=== PATIENT | male | born 1975 | race Caucasian/White ===

== ENCOUNTER 2020-05-27 04:57 | Observation (INO) | payer SELFPAY ==
[~2020-05-27] VITALS: Ht 180.3 cm; Wt 104.0 kg
[2020-05-27] MEDS ORDERED: NITROGLYCERIN 0.4 MG SL TABS BTL 25'S SL ONE (05:17)
[2020-05-27] MEDS ORDERED: ASPIRIN 81 MG CHEW (CHILDREN'S ASA) ONE (05:18)
--- NOTE | 2020-05-27 05:28 | ED Cardiac General ---
History of Present Illness General Chief Complaint: Chest Pain Stated Complaint: PALPITATIONS Source: patient Exam Limitations: no limitations (MARCO A PURCELL) History of Present Illness Date Seen by Provider: May 27, 2020 Time Seen by Provider: 05:09 Initial Comments The patient presents to the ER by private conveyance with chief complaint of 6 out of 10 pain across his entire anterior chest nonradiating to his jaw, neck or shoulders starting about 1-2 hours prior to arrival. He says he was in his car driving to see his dad here in [place]. He's from [place], [place]. He does not have a personal history of heart disease. He felt like his heart was racing but did not actually endorse palpitations. He did not have any syncope or near- syncope. He is not having any nausea now but he did have some earlier. He has no fevers cough shortness of air sick contacts. He denies diarrhea or vomiting. He denies a history of anxiety, hypertension, GERD, hyperlipidemia, smoking, recreational drugs. He says he had a couple of shots about 12 hours ago. (MARCO A PURCELL) Allergies and Home Medications Allergies Coded Allergies: No Known Drug Allergies (Unverified , 05/27/20) Home Medications No Active Prescriptions or Reported Meds Patient Home Medication List Home Medication List Reviewed: Yes (MARCO A PURCELL) Review of Systems Review of Systems Constitutional: No chills, No diaphoresis, No dizziness, No fever, No malaise EENTM: No Blurred Vision, No Double Vision Respiratory: Denies Cough, Denies Shortness of Air Cardiovascular: See HPI, Chest Pain; Denies Edema, Denies Irregular Heart Rate; Lightheadedness; Denies Palpitations, Denies Syncope Gastrointestinal: Denies Abdomen Distended, Denies Abdominal Pain, Denies Constipated, Denies Diarrhea; Nausea; Denies Vomiting Genitourinary: Denies Burning, Denies Discharge Musculoskeletal: No back pain, No joint pain Psychiatric/Neurological: Denies Anxiety, Denies Depressed (MARCO A PURCELL) All Other Systems Reviewed Negative Unless Noted: Yes (MARCO A PURCELL) Past Ffqycwp-Cyvzqq-Kwlofl Hx Patient Social History Alcohol Use: Occasionally Uses Alcohol Beverage of Choice: Whiskey Recreational Drug Use: No Smoking Status: Never a Smoker Recent Foreign Travel: No Contact w/Someone Who Travel: No (MARCO A PURCELL) Physical Exam Vital Signs Vital Signs - First Documented 05/27/20 05:10 Temp 36.6 Pulse 100 Resp 20 B/P (MAP) 170/121 (137) Pulse Ox 100 O2 Delivery Room Air (DENISSE DANG MD) Vital Signs Capillary Refill : (MARCO A PURCELL) Height, Weight, BMI Height: '" Weight: lbs. oz. kg; BMI Method: General Appearance: Anxious, Mild Distress HEENT: PERRL/EOMI, Pharynx Normal, Moist Mucous Membranes Neck: Full Range of Motion, Normal Inspection Respiratory: Lungs Clear, Normal Breath Sounds, No Accessory Muscle Use, No Respiratory Distress Cardiovascular: Regular Rate, Rhythm, No Edema Gastrointestinal: Normal Bowel Sounds, Non Tender, Soft Extremity: Normal Capillary Refill, Normal Inspection, No Pedal Edema Neurologic/Psychiatric: Alert, Oriented x3 Skin: Normal Color, Warm/Dry (MARCO A PURCELL) Progress/Results/Core Measures Results/Orders Lab Results Laboratory Tests Test 05/27/20 05:18 05/27/20 07:27 05/27/20 08:59 Range/Units White Blood Count 6.9 4.3-11.0 10^3/uL Red Blood Count 6.53 H 4.30-5.52 10^6/uL Hemoglobin 19.2 H 13.3-17.7 g/dL Hematocrit 56 H 40-54 % Mean Corpuscular Volume 86 80-99 fL Mean Corpuscular Hemoglobin 29 25-34 pg Mean Corpuscular Hemoglobin Concent 34 32-36 g/dL Red Cell Distribution Width 12.9 10.0-14.5 % Platelet Count 148 130-400 10^3/uL Mean Platelet Volume 11.0 9.0-12.2 fL Immature Granulocyte % (Auto) 0 % Neutrophils (%) (Auto) 78 H 42-75 % Lymphocytes (%) (Auto) 16 12-44 % Monocytes (%) (Auto) 6 0-12 % Eosinophils (%) (Auto) 0 0-10 % Basophils (%) (Auto) 0 0-10 % Neutrophils # (Auto) 5.4 1.8-7.8 10^3/uL Lymphocytes # (Auto) 1.1 1.0-4.0 10^3/uL Monocytes # (Auto) 0.4 0.0-1.0 10^3/uL Eosinophils # (Auto) 0.0 0.0-0.3 10^3/uL Basophils # (Auto) 0.0 0.0-0.1 10^3/uL Immature Granulocyte # (Auto) 0.0 0.0-0.1 10^3/uL Prothrombin Time 13.3 12.2-14.7 SEC INR Comment 1.0 0.8-1.4 Activated Partial Thromboplast Time 28 24-35 SEC D-Dimer 0.16 0.00-0.49 UG/ML Sodium Level 143 135-145 MMOL/L Potassium Level 4.0 3.6-5.0 MMOL/L Chloride Level 107 98-107 MMOL/L Carbon Dioxide Level 24 21-32 MMOL/L Anion Gap 12 5-14 MMOL/L Blood Urea Nitrogen 9 7-18 MG/DL Creatinine 1.30 0.60-1.30 MG/DL Estimat Glomerular Filtration Rate 60 BUN/Creatinine Ratio 7 Glucose Level 120 H 70-105 MG/DL Calcium Level 10.7 H 8.5-10.1 MG/DL Corrected Calcium 8.5-10.1 MG/DL Magnesium Level 2.0 1.6-2.4 MG/DL Total Bilirubin 0.6 0.1-1.0 MG/DL Aspartate Amino Transf (AST/SGOT) 24 5-34 U/L Alanine Aminotransferase (ALT/SGPT) 51 0-55 U/L Alkaline Phosphatase 111 40-136 U/L Myoglobin 35.9 10.0-92.0 NG/ML Troponin I < 0.028 < 0.028 <0.028 NG/ML Total Protein 7.3 6.4-8.2 GM/DL Albumin 4.6 H 3.2-4.5 GM/DL C-Reactive Protein High Sensitivity 0.05 0.00-0.50 MG/DL (DENISSE DANG MD) My Orders Orders - DENISSE DANG MD Troponin I (05/27/20 07:30) Ketorolac Injection (Toradol Injection) (05/27/20 07:15) Ondansetron Injection (Zofran Injectio (05/27/20 07:15) Hs C Reactive Protein (05/27/20 07:30) Ct Angio Chest W (05/27/20 08:43) Jak2 Mutation (V617f) Analysis (05/27/20 08:43) Iohexol Injection (Omnipaque 350 Mg/Ml 1 (05/27/20 09:00) Received Contrast (Hold Metformin- Contr (05/27/20 09:00) Ns (Ivpb) (Sodium Chloride 0.9% Ivpb Bag (05/27/20 09:00) (DENISSE DANG MD) Medications Given in ED Current Medications Medications Dose Ordered Sig/Salma Route Start Time Stop Time Status Last Admin Dose Admin Iohexol 100 ml ONCE ONCE IV 05/27/20 09:00 05/27/20 09:01 DC 05/27/20 09:09 70 ML Ketorolac Tromethamine 30 mg ONCE ONCE IVP 05/27/20 07:15 05/27/20 07:16 DC 05/27/20 07:07 30 MG Ondansetron HCl 4 mg ONCE ONCE IVP 05/27/20 07:15 05/27/20 07:16 DC 05/27/20 08:00 4 MG Sodium Chloride 100 ml ONCE ONCE IV 05/27/20 09:00 05/27/20 09:01 DC 05/27/20 09:09 80 ML (DENISSE DANG MD) Vital Signs/I&O 05/27/20 05/27/20 05:10 05:10 Temp 36.6 Pulse 100 Resp 20 B/P (MAP) 170/121 (137) Pulse Ox 100 O2 Delivery Room Air (DENISSE DANG MD) Progress Progress Note #1: Time: 05:26 Progress Note Anxiety attack, GERD are also in the differential. His heart rate is around 100 on arrival and could be from anxiety pain. We'll get a d-dimer. Progress Note #2: Time: 05:33 Progress Note 2 doses of nitroglycerin made no difference in his pain. His heart rate is still around 105-110. His blood pressure went down from 160 systolic to 140 systolic. We'll try a GI cocktail. If that does not help next week may try morphine for its anxiolytic and pain control properties. He still rates his pain at about a 6 out of 10. (MARCO A PURCELL) Progress Note #1: Time: 07:17 Progress Note I assumed care of this patient from Dr. Purcell at 06:15. Patient reports no improvement in his throbbing, fluttering discomfort in the left chest. We are now trying Toradol. A repeat troponin will be drawn at 07:30. We will reassess at that time. Patient reports he still has some nausea. A repeat dose of Zofran has been ordered. Patient's heart rate improved to about 80 after a liter of IV fluid. Patient asserts that he still feels like his heart is racing despite the improvement in heart rate. I did inquire about anxiety. Patient does not feel like he has issues with anxiety and denies any recent life circumstances that would induce anxiety. Progress Note #2: Time: 09:03 Progress Note Patient states chest discomfort has not changed at all with any of the therapies administered. He declines an anxiolytic as he does not think anxiety is a contributing factor. I discussed the elevated hemoglobin and hematocrit with Dr. Janis is Dr. Holm making rounds this weekend okay okay right thank you thew who recommends obtaining a Roger 2 mutation study as well as a CT angiogram of the chest. He also recommended a therapeutic phlebotomy of 500 cc. Case was also discussed with Dr. Chakraborty who would like patient admitted and to obtain another troponin IV hours after the last 1 as well as an echocardiogram. Dr. Cadena is agreeable to admission. Dr. Quinn can see the patient in consultation on Friday if needed. (DENISSE DANG MD) Initial ECG Impression Date: May 27, 2020 Initial ECG Impression Time: 05:14 Initial ECG Rate: 97 Initial ECG Rhythm: Normal Sinus Initial ECG Intervals: Normal Initial ECG Impression: Normal Initial ECG Comparisson: No Previous ECG Available Comment Normal sinus rhythm without clinically relevant ST changes. (MARCO A PURCELL) Diagnostic Imaging Diagonstic Imaging: Xray Plain Films/CT/US/NM/MRI: chest Comments No acute cardio pulmonary processes noted. Reviewed: Reviewed by Me (MARCO A PURCELL) Departure Communication (Admissions) Time/Spoke to Admitting Phy: 09:06 Dr. Surinder Chakraborty at 08:30 Dr. Quinn at 08:35 (DENISSE DANG MD) Impression Primary Impression: Chest pain Qualified Codes: R07.9 - Chest pain, unspecified Additional Impressions: Elevated hemoglobin Hypertension Qualified Codes: I10 - Essential (primary) hypertension Disposition: ADMITTED INPATIENT Condition: Improved Admissions Decision to Admit Reason: Admit from ER (General) Decision to Admit/Date: May 27, 2020 Time/Decision to Admit Time: 08:30 (DENISSE DANG MD) Departure-Patient Inst. Referrals: NO,LOCAL PHYSICIAN (PCP/Family) Primary Care Physician Scripts No Active Prescriptions or Reported Meds MARCO A PURCELL May 27, 2020 05:27 DENISSE DANG MD May 27, 2020 07:20
[2020-05-27] MEDS ORDERED: ASPIRIN 81 MG CHEW (CHILDREN'S ASA) PO ONE (05:30)
[2020-05-27] MEDS ORDERED: NITROGLYCERIN 0.4 MG SL TABS BTL 25'S SL PRN (05:30)
[2020-05-27 05:31] LABS: BASOPHILS % (AUTO) 0 % (0-10); EOSINOPHILS % (AUTO) 0 % (0-10); HEMATOCRIT 56 % (40-54); HEMOGLOBIN 19.2 g/dL (13.3-17.7); LYMPHOCYTES # (AUTO) 1.1 10^3/uL (1.0-4.0); LYMPHOCYTES % (AUTO) 16 % (12-44); MEAN CORPUSCULAR HEMOGLOBIN 29 pg (25-34); MEAN CORPUSCULAR HGB CONC 34 g/dL (32-36); MEAN CORPUSCULAR VOLUME 86 fL (80-99); MONOCYTES # (AUTO) 0.4 10^3/uL (0.0-1.0); MONOCYTES % (AUTO) 6 % (0-12); NEUTROPHILS # (AUTO) 5.4 10^3/uL (1.8-7.8); NEUTROPHILS % (AUTO) 78 % (42-75); PLATELET COUNT 148 10^3/uL (130-400); WHITE BLOOD COUNT 6.9 10^3/uL (4.3-11.0)
[2020-05-27] MEDS ORDERED: FAMOTIDINE 20 MG (PEPCID) TABLET PO STA (05:32)
[2020-05-27 05:35] LABS: ALBUMIN 4.6 GM/DL (3.2-4.5)
[2020-05-27 05:36] LABS: CHLORIDE 107 MMOL/L (98-107); SODIUM 143 MMOL/L (135-145)
[2020-05-27 05:37] LABS: CALCIUM 10.7 MG/DL (8.5-10.1)
[2020-05-27 05:38] LABS: GLUCOSE 120 MG/DL (70-105); TOTAL PROTEIN 7.3 GM/DL (6.4-8.2)
[2020-05-27 05:39] LABS: CARBON DIOXIDE 24 MMOL/L (21-32)
[2020-05-27 05:40] LABS: BILIRUBIN,TOTAL 0.6 MG/DL (0.1-1.0)
[2020-05-27 05:41] LABS: ALKALINE PHOSPHATASE 111 U/L (40-136)
[2020-05-27 05:42] LABS: GFR ESTIMATED 60
[2020-05-27] MEDS ORDERED: ONDANSETRON 4 MG/2 ML (SDV) Z0FRAN ONE (05:42)
[2020-05-27 05:43] LABS: BUN/CREATININE RATIO 7
[2020-05-27 05:44] LABS: ALANINE AMINOTRANSFERASE 51 U/L (0-55)
[2020-05-27] MEDS ORDERED: LIDOCAINE 2% VISCOUS 15 ML UDC PO ONE (05:45)
[2020-05-27] MEDS ORDERED: ONDANSETRON 4 MG/2 ML (SDV) Z0FRAN IVP ONE ×2 (05:45→07:15)
[2020-05-27] MEDS ORDERED: ANTACID SUSP 30 ML UDC (MYLANTA) PO ONE (05:45)
[2020-05-27 05:54] LABS: FIBRIN DEGRADATION PRODUCTS 0.16 UG/ML (0.00-0.49); PROTHROMBIN TIME PATIENT 13.3 SEC (12.2-14.7)
[2020-05-27] MEDS ORDERED: morphine INJ 10 MG/ML 1ML (SYR OR VIAL) IVP STA (06:14)
[2020-05-27] MEDS ORDERED: LACTATED RINGERS 1,000 ML IV ONE (06:15)
[2020-05-27] MEDS ORDERED: KETOROLAC 30 MG/ML VIAL IVP ONE (07:15)
[2020-05-27] MEDS ORDERED: HOLD METFORMIN - RECEIVED CONTRAST 20 ML VIAL IV SCH (09:00)
[2020-05-27] MEDS ORDERED: NS 100 ML (IVPB) BAG IV ONE (09:00)
[2020-05-27] MEDS ORDERED: IOHEXOL 350 MG/ML 100 ML (OMNIPAQUE 350) VIAL IV ONE (09:00)
--- NOTE | 2020-05-27 09:05 | Diagnostic Imaging Report ---
INDICATION: Chest pain No focal infiltrate, effusion or pneumothorax. IMPRESSION: No acute appearing abnormality. Dictated by: Dictated on workstation # [id number]
--- NOTE | 2020-05-27 09:33 | Diagnostic Imaging Report ---
PROCEDURE: CT angiography of the chest with contrast. TECHNIQUE: Multiple contiguous axial images were obtained through the chest after uneventful bolus administration of intravenous contrast. 3D reconstructed CTA MIP acquisitions were also performed. Auto Exposure Controls were utilized during the CT exam to meet ALARA standards for radiation dose reduction. INDICATION: Clinical suspicion for PE. There are no intraluminal pulmonary arterial filling defects. There were no findings of pulmonary arterial embolus. The thoracic aorta is patent and nonaneurysmal and nonacute. There is no pleural or pericardial effusion. The lungs are clear and well expanded. No mass or lymphadenopathy. No acute soft tissue or osseous chest wall pathology. The visualized upper abdomen show a hypodense but non-simple appearing right renal midpole lesion in the cortex 1.5 cm. Its follow-up sonographic correlation recommended as its unclear if this is solid or complex cystic. There are bilateral renal collecting system hyperdensities which may be early accumulation of contrast media versus nonobstructing stones, calculus disease felt more likely this could also be confirmed or refuted at ultrasound. Spleen is at the upper limits of normal for size but appeared nonfocal and nonacute. No upper abdominal free fluid or free air. IMPRESSION: Negative for PE or acute appearing chest pathology. Probable nonobstructing nephrolithiasis, indeterminate right renal cortical nodule complex cystic versus solid, correlating ultrasound recommended. An acute appearing abnormality at today's study is not identified. Dictated by: Dictated on workstation # [id number]
--- NOTE | 2020-05-27 09:36 | NUR ---
pt to daysurg for therapeutic phlebotomy.
[2020-05-27 09:52] LABS: AMPHETAMINE SCREEN, URINE NEGATIVE (NEGATIVE); BARBITURATE SCREEN URINE NEGATIVE (NEGATIVE); BENZODIAZEPINES SCREEN URINE NEGATIVE (NEGATIVE); CANNABINOID SCREEN, URINE NEGATIVE (NEGATIVE); COCAINE SCREEN URINE NEGATIVE (NEGATIVE); METHADONE STAT NEGATIVE (NEGATIVE); METHAMPHETAMINE SCREEN URINE S NEGATIVE (NEGATIVE); OPIATE SCREEN URINE POSITIVE (NEGATIVE); OXYCODONE STAT NEGATIVE (NEGATIVE); PROPOXYPHENE STAT NEGATIVE (NEGATIVE); TRICYCLIC ANTIDEPRESSANTS SCRE NEGATIVE (NEGATIVE)
[2020-05-27] MEDS ORDERED: ONDANSETRON 4 MG/2 ML (SDV) Z0FRAN IV PRN (10:45)
--- NOTE | 2020-05-27 11:00 | NUR ---
ALCIDES CAMACHO admitted to room 419-1, with an admitting diagnosis of CHEST PAIN/INCREASED HGB, on 05/27/20 from ED via WHEELCHAIR, accompanied by ED STAFF. ALCIDES CAMACHO introduced to surroundings, call light, bed controls, phone, TV, temperature control, lights, meal times, smoking policy, visitor policy, side rail policy, bathrooms and showers. Patient Rights given to patient in the handbook. ALCIDES CAMACHO verbalizes understanding that [facility] is not responsible for the loss or damage to any personal effects or valuables that are kept in the patients posession during their hospitalization. ALCIDES CAMACHO verbalizes understanding of Interdisciplinary Patient Education. Patient and/or family were informed about the Rapid Response Team and its purpose.
--- NOTE | 2020-05-27 11:01 | History & Physical ---
HPI History of Present Illness: Patient was driving in his car and had sudden onset of chest pain on left side of chest. Presented to ED. No improvement after nitro, morphine or toradol. Negative troponins times [address] elevation. Pain was 7/10. No past medical history. Hematocrit was elevated at 56. Dr. Quinn was consulted in ED who thought that symptoms could be due to elevated hematocrit. He recommended removing 500 ml of blood volume and checking MAKENNA [address]. Dr. Chakraborty is consulted for management of chest pain. Patient admits that mother of [place] at age 49, but was a smoker with other health problems. CTA chest in ED was normal except for cystic structure in kidney. Source: patient, RN/MD Date seen by provider: May 27, 2020 Time Seen by Provider: 11:12 Attending Physician Belkis Holguin MD PCP Ivan Siddiqi MD Consult Date of Admission May 27, 2020 at 09:06 Home Medications Home Medications Reviewed patient Home Medication Reconciliation performed by pharmacy medication reconciliations cardiovascular technician and/or nursing. Patients Allergies have been reviewed. Allergies Coded Allergies: No Known Drug Allergies (Unverified , 05/27/20) ENB-[id number]-Vwepdp Hx Patient Social History Alcohol Use: Occasionally Uses Recreational Drug Use: No Smoking Status: Never a Smoker Recent Foreign Travel: No Contact w/other who traveled: No Recent Hopitalizations: No Recent Infectious Disease Expo: No Past Medical History No past medical history per patient. Review of Systems ([facility]) Constitutional: No chills, No diaphoresis, No dizziness, No fever, No malaise, No weakness EENTM: no symptoms reported Respiratory: No cough, No dyspnea on exertion, No hemoptysis, No orthopnea, No short of breath Cardiovascular: chest pain; No edema, No palpitations Gastrointestinal: No abdominal pain, No constipation Genitourinary: No decreased output, No frequency, No hematuria Musculoskeletal: No back pain Skin: No dryness, No rash Psychiatric/Neurological: Denies Headache, Denies Numbness, Denies Paresthesia Physical Exam-([facility]) Physical Exam Vital Signs VS - Last 72 Hours, by Label 05/27/20 05/27/20 05/27/20 05:10 05:10 09:48 Temp 36.6 Pulse 100 93 Resp 20 14 B/P (MAP) 170/121 (137) 150/110 Pulse Ox 100 98 O2 Delivery Room Air Capillary Refill : Less Than 3 Seconds General Appearance: WD/WN, no apparent distress Eyes: Bilateral Eye Normal Inspection, Bilateral Eye PERRL HEENT: PERRL/EOMI Neck: non-tender, full range of motion Respiratory: chest non-tender, lungs clear, normal breath sounds, no respiratory distress, no accessory muscle use Cardiovascular: regular rate, rhythm, no edema, no murmur Gastrointestinal: non tender, soft Extremities: normal range of motion, non-tender, normal inspection Neurologic/Psychiatric: alert, normal mood/affect, oriented x 3 Skin: normal color, warm/dry; No diaphoresis Assessment/Plan Assessment/Plan Admission Status: Observation Reason for Inpatient Admission: Chest pain. (1) Chest pain Status: Acute Assessment & Plan: Unsure of cause. Treating for elevated hematocrit. Appreciate recs from hematology. Continue to monitor troponins. Cardiology on board. Qualifiers: Qualified Codes: R07.9 - Chest pain, unspecified (2) Hypertension Status: Acute Assessment & Plan: May need to treat as may be cause of his chest pain. If not improving, will consider IV bp medications. Qualifiers: Qualified Codes: I10 - Essential (primary) hypertension (3) Elevated hemoglobin Status: Acute Assessment & Plan: Management as per above. (4) Mass of kidney of unknown nature Assessment & Plan: Made patient aware. Will need ultrasound renal as outpatient likely. Clinical Quality Measures AMI/AHF: ASA po Prior to arrival: BELKIS Ying MD May 27, 2020 11:01
[2020-05-27 11:10] VITALS: BP 150/100
[2020-05-27 11:37] VITALS: BP 162/106
--- NOTE | 2020-05-27 11:48 | NUR ---
THIS RN PHONED DR. MILLER AND INFORMED THAT PATIENT STILL HAS BP'S 150'S-160'S SYSTOLIC AND DIASTOLIC 102-108 TAKEN EITHER BY MACHINE OR MANUAL WITH NO CHANGE SINCE ARRIVING ON FLOOR AND THAT IN ED PATIENT WAS 172/[address] KELLEY INFORMED TO CONTACT HIM FOR ORDERS. DR. MILLER GAVE ONE TIME ORDER FOR NITRO PASTE 1" AND INFORMED DR. KELLEY ORDERED BNP AND AND THAT LAST TROPONIN WOULD BE DONE WITH IT.
[2020-05-27] MEDS ORDERED: NITROGLYCERIN 2% OINT 1 GM UNIT DOSE PACKET ONE (11:50)
[2020-05-27 12:00] VITALS: BP 157/102
[2020-05-27] MEDS ORDERED: NITROGLYCERIN 2% OINT 1 GM UNIT DOSE PACKET TOP ONE (12:00)
[2020-05-27] MEDS: NS IV 1000 ML 1,000 ML IV SCH ×2 (12:05→20:19)
--- NOTE | 2020-05-27 12:40 | NUR ---
THIS RN PHONED DR. MILLER BACK AND UPDATED ON VITAL SIGNS, LABS, IMAGING, PAIN STILL 7/[address] MILLER INFORMED THAT THIS IS UNLIKELY CARDIAC RELATED AND TO REFER TO DR. KELLEY AND DR. KAY.
--- NOTE | 2020-05-27 12:58 | NUR ---
DR. KELLEY INFORMED TO PHONE DR KAY FOR FURTHER ORDERS.
--- NOTE | 2020-05-27 13:10 | NUR ---
THIS RN PHONED DR. KAY TO INFORM THAT DR. KELLEY REFERRED ME TO HIM DUE TO DR. MILLER STATING NOT LIKELY A CARDIAC ISSUE AND THAT PATIENT STILL HAS PAIN IN CHEST. DR. KAY GAVE TELEPHONE ORDER FOR HUMIDIFIED OXYGEN 2L AND STAT CBC.
[2020-05-27 14:01] LABS: HEMOGLOBIN 17.2 g/dL (13.3-17.7); MEAN PLATELET VOLUME 11.7 fL (9.0-12.2); WHITE BLOOD COUNT 6.6 10^3/uL (4.3-11.0)
--- NOTE | 2020-05-27 14:35 | NUR ---
THIS RN RECEIVED TELEPHONE ORDER FOR PAIN FROM DR. KELLEY HYDROCODONE [id number]/3124 [id number] PRN PAIN.
--- NOTE | 2020-05-27 14:35 | NUR ---
INFORMED DR. KELLEY PATIENT STILL HAS PAIN LEVEL OF 7/10 AND IF HE COULD HAVE SOMETHING FOR PAIN. THIS RN INFORMED THAT DR. KAY SAID HE WILL BE BY THIS AFTERNOON.
[2020-05-27] MEDS ORDERED: HYDROcodone/APAP 5 MG/325 MG (LORTAB) TAB PO PRN (14:45)
[2020-05-27 16:00] VITALS: BP 152/83
--- NOTE | 2020-05-27 16:01 | Consultation-Cardiology ---
HPI-Cardiology Cardiology Consultation: Date of Consultation 05/27/20 Date of Admission Attending Physician Sola Holguin MD Admitting Physician Ivan Siddiqi MD Consulting Physician Slime CHAKRABORTY MD HPI: Time Seen by a Provider: 15:30 Chief Complaint: Chest pain This is a 45-year-old gentleman who denies active smoking. Mother has history of CAD. He presented to the ER with complain of moderate chest pain but was in the anterior chest radiating to the jaw. Started at 3:30 in the morning. No exacerbating or relieving factors. He also complained of racing heart and short ness of breath. The patient was still having chest discomfort. He was also found to have elevated blood pressure. He denies any active drug abuse. Review of Systems-Cardiology Review of Systems Constitutional: As described under HPI; No As described under HPI, No no symptoms reported, No chills, No fever, No lightheadedness Eyes: No As described under HPI, No no symptoms reported, No blindness, No blurred vision, No contact lenses, No drainage, No decreased acuity, No foreign body sensation, No pain, No vision change Ears/Nose/Throat: No As described under HPI, No no symptoms reported, No chronic hearing loss, No ear discharge, No ear pain, No nasal drainage, No ulce rations Respiratory: No no symptoms reported; As described under HPI; No As described under HPI, No cough, No orthopnea, No shortness of breath, No SOB with excertion Cardiovascular: No no symptoms reported; As described under HPI; No As described under HPI; chest pain; No edema, No irregular heart rate, No lightheadedness, No palpitations Gastrointestinal: No no symptoms reported, No As described under HPI, No abdomen distended, No abdominal pain, No blood streaked bowels, No constipation, No diarrhea, No nausea, No vomiting, No stool coloration changes Genitourinary: No As described under HPI, No burning, No dysuria, No discharge, No frequency, No flank pain, No hematuria, No urgency Skin: No rash, No skin related problems, No ulcerations Psychiatric/Neurological: No anxiety, No depression, No seizure, No focal weakness, No syncope Hematologic: No bleeding abnormalities All Other Systems Reviewed Negative Unless Noted: Yes MID-Nkdlhn-Kgiczl Hx Patient Social History Alcohol Use: Occasionally Uses Recreational Drug Use: No Smoking Status: Never a Smoker Recent Foreign Travel: No Recent Infectious Disease Expo: No Immunizations Up To Date Date of Influenza Vaccine: Mar 30, 2020 Past Medical History PMH As described under Assessment. Allergies and Home Medications Allergies Coded Allergies: No Known Drug Allergies (Unverified , 05/27/20) Home Medications No Active Prescriptions or Reported Meds Patient Home Medication List Home Medication List Reviewed: Yes Physical Exam-Cardiology Physical Exam Vital Signs/I&O 05/27/20 05/27/20 05/27/20 05/27/20 05:10 05:10 09:48 11:37 Temp 36.6 37.1 Pulse 100 93 75 Resp 20 14 20 B/P (MAP) 170/121 (137) 150/110 162/106 Pulse Ox 100 98 100 O2 Delivery Room Air Room Air 05/27/20 05/27/20 12:00 12:53 Pulse 76 Pulse Ox 100 O2 Delivery Room Air Capillary Refill : Less Than 3 Seconds Constitutional: appears stated age, AAO x 3; No apparent distress; well- developed, well-nourished HEENT: PERRL; No discharge; hearing is well preserved, oral hygience is good; No ulceration, No xanthelasmas are seen Neck: No carotid bruit; carotid pulses are 2 + bilaterally Respiratory: chest is bilaterally symmetric, lungs clear to auscultation Cardiovascular: regular rate-rhythm, S1 and S2; No diastolic murmur, No systolic murmur Gastrointestinal: soft, audible bowel sounds; No spleenomegaly Rectal: deferred Extremities: normal range of motion, non-tender, normal inspection; No clubbing, No cyanosis; no lower extremity edema bilateral; No significant edema Neurologic/Psychiatric: no motor/sensory deficits, alert, normal mood/affect, oriented x 3, power is 5/5 both on sides Skin: normal color, warm/dry; No rash, No ulcerations Data Review Labs Laboratory Tests 05/27/20 05:18: White Blood Count 6.9, Red Blood Count 6.53H, Hemoglobin 19.2H, Hematocrit 56H, Mean Corpuscular Volume 86, Mean Corpuscular Hemoglobin 29, Mean Corpuscular Hemoglobin Concent 34, Red Cell Distribution Width 12.9, Platelet Count 148, Mean Platelet Volume 11.0, Immature Granulocyte % (Auto) 0, Neutrophils (%) (Auto) 78H, Lymphocytes (%) (Auto) 16, Monocytes (%) (Auto) 6, Eosinophils (%) (Auto) 0, Basophils (%) (Auto) 0, Neutrophils # (Auto) 5.4, Lymphocytes # (Auto) 1.1, Monocytes # (Auto) 0.4, Eosinophils # (Auto) 0.0, Basophils # (Auto) 0.0, Immature Granulocyte # (Auto) 0.0, Prothrombin Time 13.3, INR Comment 1.0, Activated Partial Thromboplast Time 28, D-Dimer 0.16, Sodium Level 143, Potassium Level 4.0, Chloride Level 107, Carbon Dioxide Level 24, Anion Gap 12, Blood Urea Nitrogen 9, Creatinine 1.30, Estimat Glomerular Filtration Rate 60, BUN/Creatinine Ratio 7, Glucose Level 120H, Calcium Level 10.7H, Corrected Calcium , Magnesium Level 2.0, Total Bilirubin 0.6, Aspartate Amino Transf (AST /SGOT) 24, Alanine Aminotransferase (ALT/SGPT) 51, Alkaline Phosphatase 111, Myoglobin 35.9, Troponin I < 0.028, Total Protein 7.3, Albumin 4.6H 05/27/20 07:27: Troponin I < 0.028, C-Reactive Protein High Sensitivity 0.05 05/27/20 08:59: 05/27/20 09:36: Urine Opiates Screen POSITIVEH, Urine Oxycodone Screen NEGATIVE, Urine Methadone Screen NEGATIVE, Urine Propoxyphene Screen NEGATIVE, Urine Barbiturates Screen NEGATIVE, Ur Tricyclic Antidepressants Screen NEGATIVE, Urine Phencyclidine Screen NEGATIVE, Urine Amphetamines Screen NEGATIVE, Urine Methamphetamines Screen NEGATIVE, Urine Benzodiazepines Screen NEGATIVE, Urine Cocaine Screen NEGATIVE, Urine Cannabinoids Screen NEGATIVE 05/27/20 12:00: Troponin I < 0.028, B-Type Natriuretic Peptide < 10.0 05/27/20 13:56: White Blood Count 6.6, Red Blood Count 5.85H, Hemoglobin 17.2, Hematocrit 51, Mean Corpuscular Volume 87, Mean Corpuscular Hemoglobin 29, Mean Corpuscular Hemoglobin Concent 34, Red Cell Distribution Width 13.1, Platelet Count 150, Mean Platelet Volume 11.7 A/P-Cardiology Assessment/Admission Diagnosis Chest pain, Palpitation, Shortness of breath, Polycythemia, Possible hyperviscosity syndrome, Hypertension Plan Chest pain, 3 serial troponin are negative. The patient has been having continuous chest pain for at least 12 hours. Moderate intensity. Acute coronary syndrome has been ruled out. I discussed at length with the patient and shared my thoughts that in a patient who is having continuous moderate chest discomfort for 12 hours, 3 high sensitive troponin are negative, therefore it is very very unlikely that this is an acute coronary syndrome. It may be associated with hyperviscosity syndrome. I will defer to the primary team and Dr. West. Palpitation, no further palpitations. Normal heart beating. Shortness of breath, will request an echocardiogram. Patient was not hypoxic in the ER. BNP is 10, congestive heart failure is very unlikely. Polycythemia, hemoglobin over 19. Defer to Dr. West. Possible hyperviscosity syndrome, will defer to Dr. West. Hypertension Thank you for your consultation. Please call me if you have any questions. Carlos A Chakraborty MD, FACP, FACC, FSCAI, FHRS, CCDS Interventional Cardiology Cardiac Electrophysiology Vascular Medicine and Endovascular Interventions Clinical Quality Measures AMI/AHF: ASA po Prior to arrival: No DVT/VTE Risk/Contraindication: Risk Factor Score Per Nursin RFS Level Per Nursing on Admit: 1=Low/No VTE PPX Slime CHAKRABORTY MD May 27, 2020 16:00
--- NOTE | 2020-05-27 16:37 | NUR ---
SPOKE TO DR. KAY ON PHONE AND INFORMED THAT HGB DECREASED AND BLOOD PRESSURE IS DOWN. GAVE TELEPHONE ORDER TO DECREASE FLUIDS TO 100ML/HR OVERNIGHT AND CBC IN AM
[2020-05-27 20:00] VITALS: BP 161/100
[2020-05-27 23:31] VITALS: BP 132/74
[2020-05-28 04:08] VITALS: BP 141/90
[2020-05-28] MEDS: NS IV 1000 ML 1,000 ML IV SCH (06:15)
[2020-05-28 07:29] LABS: HEMATOCRIT 48 % (40-54)
[2020-05-28 07:31] LABS: BASOPHILS % (AUTO) 1 % (0-10); EOSINOPHILS % (AUTO) 1 % (0-10); HEMOGLOBIN 15.8 g/dL (13.3-17.7); LYMPHOCYTES # (AUTO) 1.4 10^3/uL (1.0-4.0); LYMPHOCYTES % (AUTO) 27 % (12-44); MEAN CORPUSCULAR HEMOGLOBIN 29 pg (25-34); MEAN CORPUSCULAR HGB CONC 33 g/dL (32-36); MEAN CORPUSCULAR VOLUME 89 fL (80-99); MEAN PLATELET VOLUME 10.9 fL (9.0-12.2); MONOCYTES # (AUTO) 0.4 10^3/uL (0.0-1.0); MONOCYTES % (AUTO) 8 % (0-12); NEUTROPHILS # (AUTO) 3.3 10^3/uL (1.8-7.8); NEUTROPHILS % (AUTO) 63 % (42-75); PLATELET COUNT 112 10^3/uL (130-400); WHITE BLOOD COUNT 5.1 10^3/uL (4.3-11.0)
[2020-05-28 08:00] VITALS: BP 159/97
[2020-05-28 08:00] LABS: BUN/CREATININE RATIO 10; CALCIUM 9.8 MG/DL (8.5-10.1); CARBON DIOXIDE 24 MMOL/L (21-32); CHLORIDE 109 MMOL/L (98-107); CHOLESTEROL 163 MG/DL (< 200); CREATININE SERUM 1.15 MG/DL (0.60-1.30); GFR ESTIMATED > 60; GLUCOSE 91 MG/DL (70-105); HDL CHOLESTEROL 36 MG/DL (40-60); POTASSIUM 4.2 MMOL/L (3.6-5.0); SODIUM 142 MMOL/L (135-145); TRIGLYCERIDES 115 MG/DL (<150); VLDL CHOLESTEROL 23 MG/DL (5-40)
[2020-05-28] MEDS ORDERED: ASPIRIN 325 MG (5 GR) TABLET PO SCH (09:00)
--- NOTE | 2020-05-28 09:57 | Progress Note ---
Subjective Subjective/Events-last exam Patient continued to have chest pain last night but this morning is feeling much improved. On IV fluids. No shortness of breath. Objective Exam Last Set of Vital Signs Vital Signs Date Time Temp Pulse Resp B/P (MAP) Pulse Ox O2 Delivery O2 Flow Rate FiO2 05/28/20 08:00 Room Air 05/28/20 07:00 73 05/28/20 04:08 36.7 18 141/90 (107) 97 05/27/20 20:00 2.00 Capillary Refill : Less Than 3 Seconds I&O Intake and Output 05/28/20 00:00 Intake Total 1990 ml Balance 1990 ml Intake Oral 990 ml IV Total 1000 ml # Voids 3 Daily Weight Change No No General: Alert, Oriented X3 HEENT: Atraumatic Neck: Supple, No JVD Lungs: Clear to Auscultation Heart: Regular Rate Extremities: No Edema Neuro: Normal Gait Psych/Mental Status: Mental Status NL Results/Procedures Lab Laboratory Tests 05/27/20 12:00: Troponin I < 0.028, B-Type Natriuretic Peptide < 10.0 05/27/20 13:56: White Blood Count 6.6, Red Blood Count 5.85H, Hemoglobin 17.2, Hematocrit 51, Mean Corpuscular Volume 87, Mean Corpuscular Hemoglobin 29, Mean Corpuscular Hemoglobin Concent 34, Red Cell Distribution Width 13.1, Platelet Count 150, Mean Platelet Volume 11.7 05/28/20 07:07: White Blood Count 5.1, Red Blood Count 5.37, Hemoglobin 15.8, Hematocrit 48, Mean Corpuscular Volume 89, Mean Corpuscular Hemoglobin 29, Mean Corpuscular Hemoglobin Concent 33, Red Cell Distribution Width 13.0, Platelet Count 112L, Mean Platelet Volume 10.9, Immature Granulocyte % (Auto) 0, Neutrophils (%) (Auto) 63, Lymphocytes (%) (Auto) 27, Monocytes (%) (Auto) 8, Eosinophils (%) (Auto) 1, Basophils (%) (Auto) 1, Neutrophils # (Auto) 3.3, Lymphocytes # (Auto) 1.4, Monocytes # (Auto) 0.4, Eosinophils # (Auto) 0.0, Basophils # (Auto) 0.0, Immature Granulocyte # (Auto) 0.0, Sodium Level 142, Potassium Level 4.2, C hloride Level 109H, Carbon Dioxide Level 24, Anion Gap 9, Blood Urea Nitrogen 11, Creatinine 1.15, Estimat Glomerular Filtration Rate > 60, BUN/Creatinine Ratio 10, Glucose Level 91, Calcium Level 9.8, Triglycerides Level 115, Cholesterol Level 163, LDL Cholesterol Direct 114, VLDL Cholesterol 23, HDL Cholesterol 36L Assessment/Plan Assessment/Plan (1) Chest pain Status: Acute Assessment & Plan: Troponins normal. Much improved today. Hemoglobin down to 15.8. On aspirin [address] Chakraborty and Ruben following. Qualifiers: Qualified Codes: R07.9 - Chest pain, unspecified (2) Hypertension Status: Acute Assessment & Plan: Improved today. Qualifiers: Qualified Codes: I10 - Essential (primary) hypertension (3) Elevated hemoglobin Status: Acute Assessment & Plan: Improved with 500 ml taken yesterday. Down to 15.8. (4) Mass of kidney of unknown nature Assessment & Plan: Made patient aware. Will need ultrasound renal as outpatient likely. Clinical Quality Measures AMI/AHF: ASA po Prior to arrival: No DVT/VTE Risk/Contraindication: Risk Factor Score Per Nursin RFS Level Per Nursing on Admit: 1=Low/No VTE PPX BELKIS KELLEY MD May 28, 2020 09:57
[2020-05-28 11:09] LABS: RETICULOCYTE % 1.69 % (0.50-2.40)
[2020-05-28] MEDS ORDERED: ASPI-808 PO (11:23)
--- NOTE | 2020-05-28 11:24 | Discharge Summary ---
Discharge [facility] Discharge Medications New, Converted or Re-Newed RX: Transmitted to Pharmacy Patient Instructions Goal/Follow Up Appt: Dr. Quinn in 2-3 weeks. Activity & Diet Discharge Diet: No Restrictions Activity as Tolerated: Yes BELKIS KELLEY MD May 28, 2020 11:24
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
[2020-05-29 14:42] LABS: HEPATITIS C ANTIBODY C Non-Reactive (Non-Reactive)
== END 2020-05-28 12:05 | disposition home or self-care (01) ==
LOC: ER 05:01 → 4TH 09:06
PROVIDERS: ADMIT Family Medicine; ATTEND Family Medicine
DX: R07.9 Chest pain, unspecified (principal); I10 Essential (primary) hypertension; N28.89 Other specified disorders of kidney and ureter; R06.02 Shortness of breath; R00.2 Palpitations; D75.1 Secondary polycythemia; Z79.899 Other long term (current) drug therapy
CPT/HCPCS: 71045; 71275; 80048; 80053; 80061; 80074; 80306; 81270; 82668; 82728; 83540; 83735; 83874; 83880; 84484; 85025 ×2; 85027; 85045; 85379; 85610; 85730; 86141; 86703; 93005; 93306; 99284; G0378; 36415

== ENCOUNTER 2021-08-15 09:26 | Outpatient (RCR) | payer BC, OTHER ==
[2021-08-08 14:36] LABS: BASOPHILS % (AUTO) 0 % (0-10); EOSINOPHILS # (AUTO) 0.1 10^3/uL (0.0-0.3); EOSINOPHILS % (AUTO) 1 % (0-10); MEAN CORPUSCULAR VOLUME 86 fL (80-99)
[2021-08-08 14:38] LABS: HEMATOCRIT 52 % (40-54); HEMOGLOBIN 17.7 g/dL (13.3-17.7); LYMPHOCYTES # (AUTO) 1.7 10^3/uL (1.0-4.0); LYMPHOCYTES % (AUTO) 24 % (12-44); MEAN CORPUSCULAR HEMOGLOBIN 30 pg (25-34); MEAN CORPUSCULAR HGB CONC 34 g/dL (32-36); MEAN PLATELET VOLUME 10.7 fL (9.0-12.2); MONOCYTES # (AUTO) 0.6 10^3/uL (0.0-1.0); MONOCYTES % (AUTO) 8 % (0-12); NEUTROPHILS # (AUTO) 4.7 10^3/uL (1.8-7.8); NEUTROPHILS % (AUTO) 67 % (42-75); PLATELET COUNT 118 10^3/uL (130-400)
[2021-08-08 14:51] LABS: ALBUMIN 4.2 GM/DL (3.2-4.5); BILIRUBIN,TOTAL 0.8 MG/DL (0.1-1.0); CALCIUM 10.6 MG/DL (8.5-10.1); CREATININE SERUM 1.13 MG/DL (0.60-1.30); POTASSIUM 4.2 MMOL/L (3.6-5.0); TOTAL PROTEIN 6.9 GM/DL (6.4-8.2)
[~2021-08-15 09:26] MED LIST: ASPI-808 PO
== END 2021-08-20 | disposition home or self-care (01) ==
LOC: ONC 09:26
PROVIDERS: ATTEND Internal Medicine Hematology & Oncology
DX: Z01.818 Encounter for other preprocedural examination (principal); D58.2 Other hemoglobinopathies; G47.10 Hypersomnia, unspecified
CPT/HCPCS: 36415; 80053; 81270; 82668; 85025; 99195; 99214

== ENCOUNTER → 2021-08-20 | Outpatient (CLI) | payer BC ==
--- NOTE | 2021-08-20 12:55 | Diagnostic Imaging Report ---
PROCEDURE: US Renal Bilateral. TECHNIQUE: Multiple real-time grayscale images were obtained over the kidneys in various projections bilaterally. INDICATION: Polycythemia vera. Right kidney measures 10.4 x 6.6 x 5.1 cm, the left kidney measures 11.0 x 6.7 x 5.5 cm. There is a cyst in the mid upper portion of the right kidney measuring 14 mm x 17 mm x 13 mm. No calculi are seen. There is no hydronephrosis. Bilateral ureteral jets were visualized. The prostate does appear to be enlarged. IMPRESSION: 1. Right renal cyst. 2. Prostatomegaly. 3. No other significant abnormality detected. Dictated by: Dictated on workstation # [id number]
== END ==
LOC: RAD 12:00
PROVIDERS: ATTEND Internal Medicine Hematology & Oncology
DX: N28.1 Cyst of kidney, acquired (principal); D45 Polycythemia vera; N40.0 Benign prostatic hyperplasia without lower urinary tract symptoms
CPT/HCPCS: 76770

== ENCOUNTER 2021-09-12 14:05 | Outpatient (RCR) | payer BC ==
[2021-08-22 09:10] LABS: HEMOGLOBIN 16.8 g/dL (13.3-17.7); MONOCYTES # (AUTO) 0.5 10^3/uL (0.0-1.0); PLATELET COUNT 126 10^3/uL (130-400)
[2021-08-22 09:12] LABS: BASOPHILS % (AUTO) 0 % (0-10); EOSINOPHILS # (AUTO) 0.1 10^3/uL (0.0-0.3); EOSINOPHILS % (AUTO) 1 % (0-10); HEMATOCRIT 49 % (40-54); LYMPHOCYTES # (AUTO) 1.6 10^3/uL (1.0-4.0); LYMPHOCYTES % (AUTO) 29 % (12-44); MEAN CORPUSCULAR HEMOGLOBIN 30 pg (25-34); MEAN CORPUSCULAR HGB CONC 34 g/dL (32-36); MEAN CORPUSCULAR VOLUME 88 fL (80-99); MEAN PLATELET VOLUME 10.8 fL (9.0-12.2); MONOCYTES % (AUTO) 9 % (0-12); NEUTROPHILS # (AUTO) 3.4 10^3/uL (1.8-7.8); NEUTROPHILS % (AUTO) 60 % (42-75); WHITE BLOOD COUNT 5.6 10^3/uL (4.3-11.0)
[2021-08-29 09:31] LABS: EOSINOPHILS # (AUTO) 0.1 10^3/uL (0.0-0.3); EOSINOPHILS % (AUTO) 1 % (0-10)
[2021-08-29 09:33] LABS: BASOPHILS % (AUTO) 0 % (0-10); HEMATOCRIT 46 % (40-54); HEMOGLOBIN 15.7 g/dL (13.3-17.7); LYMPHOCYTES # (AUTO) 1.4 10^3/uL (1.0-4.0); LYMPHOCYTES % (AUTO) 25 % (12-44); MEAN CORPUSCULAR HEMOGLOBIN 30 pg (25-34); MEAN CORPUSCULAR HGB CONC 35 g/dL (32-36); MEAN CORPUSCULAR VOLUME 88 fL (80-99); MEAN PLATELET VOLUME 10.7 fL (9.0-12.2); MONOCYTES # (AUTO) 0.5 10^3/uL (0.0-1.0); MONOCYTES % (AUTO) 9 % (0-12); NEUTROPHILS # (AUTO) 3.5 10^3/uL (1.8-7.8); NEUTROPHILS % (AUTO) 64 % (42-75); PLATELET COUNT 125 10^3/uL (130-400); WHITE BLOOD COUNT 5.5 10^3/uL (4.3-11.0)
[2021-09-04 13:51] LABS: EOSINOPHILS # (AUTO) 0.1 10^3/uL (0.0-0.3); EOSINOPHILS % (AUTO) 1 % (0-10)
[2021-09-04 13:53] LABS: BASOPHILS % (AUTO) 0 % (0-10); HEMATOCRIT 46 % (40-54); HEMOGLOBIN 15.5 g/dL (13.3-17.7); LYMPHOCYTES # (AUTO) 1.2 10^3/uL (1.0-4.0); LYMPHOCYTES % (AUTO) 28 % (12-44); MEAN CORPUSCULAR HEMOGLOBIN 30 pg (25-34); MEAN CORPUSCULAR HGB CONC 34 g/dL (32-36); MEAN CORPUSCULAR VOLUME 89 fL (80-99); MEAN PLATELET VOLUME 10.6 fL (9.0-12.2); MONOCYTES # (AUTO) 0.4 10^3/uL (0.0-1.0); MONOCYTES % (AUTO) 9 % (0-12); NEUTROPHILS # (AUTO) 2.6 10^3/uL (1.8-7.8); NEUTROPHILS % (AUTO) 61 % (42-75); PLATELET COUNT 115 10^3/uL (130-400); WHITE BLOOD COUNT 4.4 10^3/uL (4.3-11.0)
[2021-09-12 14:39] LABS: BASOPHILS % (AUTO) 1 % (0-10); HEMOGLOBIN 16.1 g/dL (13.3-17.7)
[2021-09-12 14:41] LABS: EOSINOPHILS # (AUTO) 0.1 10^3/uL (0.0-0.3); EOSINOPHILS % (AUTO) 1 % (0-10); HEMATOCRIT 49 % (40-54); LYMPHOCYTES # (AUTO) 1.2 10^3/uL (1.0-4.0); LYMPHOCYTES % (AUTO) 28 % (12-44); MEAN CORPUSCULAR HEMOGLOBIN 30 pg (25-34); MEAN CORPUSCULAR HGB CONC 33 g/dL (32-36); MEAN CORPUSCULAR VOLUME 90 fL (80-99); MONOCYTES # (AUTO) 0.3 10^3/uL (0.0-1.0); MONOCYTES % (AUTO) 6 % (0-12); NEUTROPHILS # (AUTO) 2.8 10^3/uL (1.8-7.8); NEUTROPHILS % (AUTO) 64 % (42-75); PLATELET COUNT 108 10^3/uL (130-400); WHITE BLOOD COUNT 4.3 10^3/uL (4.3-11.0)
== END 2021-09-20 | disposition home or self-care (01) ==
LOC: ONC 14:05
PROVIDERS: ATTEND Internal Medicine Hematology & Oncology
DX: Z45.2 Encounter for adjustment and management of vascular access device (principal); Z01.818 Encounter for other preprocedural examination; D58.2 Other hemoglobinopathies; G47.10 Hypersomnia, unspecified
CPT/HCPCS: 36415; 85025; 99195

== ENCOUNTER 2021-10-11 10:17 | Outpatient (RCR) | payer BC ==
[2021-09-26 10:14] LABS: BASOPHILS % (AUTO) 0 % (0-10); EOSINOPHILS # (AUTO) 0.1 10^3/uL (0.0-0.3); EOSINOPHILS % (AUTO) 1 % (0-10); HEMATOCRIT 49 % (40-54); HEMOGLOBIN 16.2 g/dL (13.3-17.7); LYMPHOCYTES % (AUTO) 29 % (12-44); MEAN CORPUSCULAR HEMOGLOBIN 29 pg (25-34); MEAN CORPUSCULAR HGB CONC 33 g/dL (32-36); MEAN CORPUSCULAR VOLUME 87 fL (80-99); MEAN PLATELET VOLUME 10.5 fL (9.0-12.2); MONOCYTES # (AUTO) 0.5 10^3/uL (0.0-1.0); MONOCYTES % (AUTO) 8 % (0-12); NEUTROPHILS # (AUTO) 4.4 10^3/uL (1.8-7.8); NEUTROPHILS % (AUTO) 62 % (42-75); PLATELET COUNT 145 10^3/uL (130-400); WHITE BLOOD COUNT 7.1 10^3/uL (4.3-11.0)
[2021-10-11 10:28] LABS: EOSINOPHILS % (AUTO) 1 % (0-10); MEAN CORPUSCULAR VOLUME 85 fL (80-99)
[2021-10-11 10:30] LABS: BASOPHILS % (AUTO) 0 % (0-10); HEMATOCRIT 50 % (40-54); HEMOGLOBIN 16.6 g/dL (13.3-17.7); LYMPHOCYTES # (AUTO) 1.6 10^3/uL (1.0-4.0); LYMPHOCYTES % (AUTO) 31 % (12-44); MEAN CORPUSCULAR HEMOGLOBIN 28 pg (25-34); MEAN CORPUSCULAR HGB CONC 33 g/dL (32-36); MEAN PLATELET VOLUME 10.9 fL (9.0-12.2); MONOCYTES # (AUTO) 0.4 10^3/uL (0.0-1.0); MONOCYTES % (AUTO) 8 % (0-12); NEUTROPHILS # (AUTO) 3.1 10^3/uL (1.8-7.8); NEUTROPHILS % (AUTO) 59 % (42-75); PLATELET COUNT 126 10^3/uL (130-400); WHITE BLOOD COUNT 5.1 10^3/uL (4.3-11.0)
[2021-10-11 10:52] LABS: ALBUMIN 4.1 GM/DL (3.2-4.5); BILIRUBIN,TOTAL 0.5 MG/DL (0.1-1.0); CALCIUM 10.4 MG/DL (8.5-10.1); CREATININE SERUM 1.24 MG/DL (0.60-1.30); POTASSIUM 3.9 MMOL/L (3.6-5.0); TOTAL PROTEIN 6.4 GM/DL (6.4-8.2)
== END 2021-10-20 | disposition home or self-care (01) ==
LOC: ONC 10:17
PROVIDERS: ATTEND Internal Medicine Hematology & Oncology
DX: D75.1 Secondary polycythemia (principal)
CPT/HCPCS: 36415; 80053; 85025; 99213